=== PATIENT | female | born 1960 | race Caucasian/White ===

== ENCOUNTER 2018-01-28 14:17 | Inpatient (IN) | payer BC ==
[2018-01-28] MEDS ORDERED: MORPHINE SULFATE 10 MG/ML INJ IV ONE ×2 (14:57→16:54)
[2018-01-28] MEDS ORDERED: ONDANSETRON HCL INJ/PF 4 MG/2 ML SDV IV ONE (14:57)
--- NOTE | 2018-01-28 15:41 | ER Document Report ---
ED General - General Chief Complaint: Fall Injury Stated Complaint: FALL Time Seen by Provider: 01/28/18 14:55 Notes: Patient slipped getting out of the shower today and fell landing on her right hip which is extremely painful now. She cannot stand or bear weight on the hip. Having muscle spasms around the right hip. Denies head injury or neck injury. No loss of consciousness. No difficulty breathing or shortness of breath. No chest pains. - Related Data Allergies/Adverse Reactions: Iodinated Contrast- Oral and IV Dye Allergy (Verified 01/28/18 15:20) Past Medical History - Social History Smoking Status: Unknown if Ever Smoked Cigarette use (# per day): No Chew tobacco use (# tins/day): No Drug Abuse: None Family History: Reviewed & Not Pertinent Patient has suicidal ideation: No Patient has homicidal ideation: No - Past Medical History Cardiac Medical History: Reports: Hx Hypertension, Other - History of cardiomyopathy for 20 years Neurological Medical History: Reports: Hx Seizures - withdrawal induced Endocrine Medical History: Reports: Hx Diabetes Mellitus Type 2 Past Surgical History: Reports: Hx Appendectomy, Hx Section, Hx Cholecystectomy, Hx Kidney (Renal Surgery) - lithotripsy, Hx Orthopedic Surgery - elbow left Review of Systems - Review of Systems Notes: REVIEW OF SYSTEMS: CONSTITUTIONAL : Denies fever. EENT: Denies eye, ear, nose or mouth or throat pain or other symptoms. CARDIOVASCULAR: Denies chest pain. RESPIRATORY: Denies cough, chest congestion, or shortness of breath. GASTROINTESTINAL: Denies abdominal pain or nausea, vomiting, or diarrhea. GENITOURINARY: Denies difficulty or painful urinating, urinary frequency, blood in urine. MUSCULOSKELETAL: See HPI. Has chronic back pain. SKIN: Denies rash or skin lesions. NEUROLOGICAL: Denies LOC or altered mental status. Denies headache. Denies sensory loss or motor deficits. ALL OTHER SYSTEMS REVIEWED AND NEGATIVE. Physical Exam - Vital signs Interpretation: Normal Notes: PHYSICAL EXAMINATION: GENERAL: Well-appearing, in pain. Vital signs all normal. HEAD: Atraumatic, normocephalic. EYES: Pupils equal round and reactive to light, extraocular movements intact. ENT: oropharynx clear without exudates. Moist mucous membranes. NECK: Normal range of motion, supple. LUNGS: Breath sounds clear and equal bilaterally. HEART: Regular rate and rhythm without murmurs. ABDOMEN: Soft, nontender. No guarding or rebound. No masses. BACK: No tenderness throughout entire back. EXTREMITIES: Very tender right hip to touch or move. Right leg slightly shorter than the left. NEUROLOGICAL: Normal speech, normal gait. Normal sensory, motor, and reflex exams. Awake, alert, and oriented x3. Cranial nerves normal. PSYCH: Normal mood, normal affect. SKIN: Warm, dry, no rashes. Course - Re-evaluation Re-evalutation: 01/28/18 16:[address] Figueroa, orthopedist service operations manager, and he requested patient be admitted to the hospitalist service. Spoke with the hospitalist who will admit the patient to the surgical floor. - Diagnostic Test Radiology results interpreted by me: 01/28/18 16:17 X-rays show intertrochanteric fracture of the right hip - EKG Interpretation by [facility] EKG shows normal: Sinus rhythm Rate: Normal Renick/QRS: LBBB Discharge - Discharge Clinical Impression: Intertrochanteric fracture of right hip Condition: Stable Disposition: ADMITTED INPATIENT Admitting Provider: Hospitalist Unit Admitted: Surgical Floor
[2018-01-28 16:36] LABS: ABSOLUTE EOSINOPHILS # (AUTO) 0.7 10^3/uL (0.0-0.6); ABSOLUTE LYMPHOCYTES (AUTO) 1.9 10^3/uL (0.5-4.7); ABSOLUTE MONOCYTES (AUTO) 0.6 10^3/uL (0.1-1.4); ABSOLUTE NEUT (AUTO) 11.1 10^3/uL (1.7-8.2); BASOPHILS % (AUTO) 0.2 % (0-2); EOSINOPHILS % (AUTO) 4.8 % (0-6); HEMOGLOBIN 11.7 g/dL (12.0-15.5); LYMPHOCYTES % (AUTO) 13.3 % (13-45); MEAN CORPUSCULAR HEMOGLOBIN 31.1 pg (27.0-33.4); MEAN CORPUSCULAR HGB CONC 33.3 g/dL (32.0-36.0); MEAN CORPUSCULAR VOLUME 93 fl (80-97); MONOCYTES % (AUTO) 4.4 % (3-13); PLATELET COUNT 249 10^3/uL (150-450); RED BLOOD COUNT 3.75 10^6/uL (3.72-5.28); RED CELL DISTRIBUTION WIDTH 13.2 % (11.5-14.0); SEGMENTED NEUTROPHILS % (AUTO) 77.3 % (42-78); TOTAL CELLS COUNTED % (AUTO) 100 %; WHITE BLOOD COUNT 14.3 10^3/uL (4.0-10.5)
[2018-01-28 16:51] LABS: ALANINE AMINOTRANSFERASE 15 U/L (9-52); ALBUMIN 3.5 g/dL (3.5-5.0); ALKALINE PHOSPHATASE 119 U/L (38-126); ANION GAP 14 (5-19); ASPARTATE AMINO TRANSFERASE 20 U/L (14-36); BILIRUBIN,DIRECT 0.1 mg/dL (0.0-0.4); BILIRUBIN,TOTAL 0.3 mg/dL (0.2-1.3); BLOOD UREA NITROGEN 20 mg/dL (7-20); CALCIUM 8.8 mg/dL (8.4-10.2); CARBON DIOXIDE 22 mmol/L (22-30); CHLORIDE 102 mmol/L (98-107); GLUCOSE 123 mg/dL (75-110); POTASSIUM 5.8 mmol/L (3.6-5.0); SODIUM 138.4 mmol/L (137-145); TOTAL PROTEIN 6.1 g/dL (6.3-8.2)
[2018-01-28] MEDS ORDERED: PROMETHAZINE HCL 25 MG TABLET PO PRN (17:01)
[2018-01-28] MEDS ORDERED: ONDANSETRON HCL INJ/PF 4 MG/2 ML SDV IV PRN (17:01)
[2018-01-28] MEDS ORDERED: ONDANSETRON 4 MG TAB.RAPDIS PO PRN (17:01)
[2018-01-28] MEDS ORDERED: BISACODYL 5 MG TABEC PO PRN (17:21)
--- NOTE | 2018-01-28 17:30 | RADIOLOGY REPORT (SQ) ---
EXAM DESCRIPTION: HIP RIGHT AP/LATERAL COMPLETED DATE/TIME: 01/28/2018 3:19 pm REASON FOR STUDY: Room 9 SP-Fall/tenderness COMPARISON: None. NUMBER OF VIEWS: Two views. TECHNIQUE: AP pelvis and additional frog-leg view of the right hip. LIMITATIONS: None. FINDINGS: MINERALIZATION: Normal. RIGHT HIP: Intertrochanteric fracture. LEFT HIP: No fracture or dislocation. No worrisome bone lesions. PUBIS AND ISCHIUM: No fracture. PELVIS: No fracture. SACRUM: No fracture or dislocation. No worrisome bone lesions. LOWER LUMBAR SPINE: No fracture or dislocation. No worrisome bone lesions. No significant disc disea se. SOFT TISSUES: No findings. OTHER: No other significant finding. IMPRESSION: INTERTROCHANTERIC FRACTURE OF THE RIGHT HIP. TECHNICAL DOCUMENTATION: JOB ID: [id number] [employer]- All Rights Reserved Reading location - IP/workstation name: [email or web address]
--- NOTE | 2018-01-28 17:31 | RADIOLOGY REPORT (SQ) ---
EXAM DESCRIPTION: KNEE RIGHT 2 VIEWS COMPLETED DATE/TIME: 01/28/2018 3:23 pm REASON FOR STUDY: Room 9 SP-Fall/tenderness COMPARISON: None. NUMBER OF VIEWS: Two views. TECHNIQUE: AP and lateral radiographic images acquired of the right knee. LIMITATIONS: None. FINDINGS: MINERALIZATION: Normal. BONES: No acute fracture or dislocation. No worrisome bone lesions. JOINT: No effusion. SOFT TISSUES: No soft tissue swelling. No radio-opaque foreign body. OTHER: No other significant finding. IMPRESSION: NEGATIVE STUDY OF THE RIGHT KNEE. NO RADIOGRAPHIC EVIDENCE OF ACUTE INJURY. TECHNICAL DOCUMENTATION: JOB ID: [id number] [employer]- All Rights Reserved Reading location - IP/workstation name: [email or web address]
[2018-01-28] MEDS ORDERED: DEXTROSE 40% GEL 15 GM TUBE PO PRN ×2 (17:32)
[2018-01-28] MEDS ORDERED: DEXTROSE 50%-WATER 25 GM/50 ML DISP.SYRIN IV PRN ×2 (17:32)
[2018-01-28] MEDS ORDERED: GLUCAGON,HUMAN RECOMB 1 MG INJ IM PRN (17:32)
--- NOTE | 2018-01-28 17:53 | RADIOLOGY REPORT (SQ) ---
EXAM DESCRIPTION: CHEST SINGLE VIEW COMPLETED DATE/TIME: 01/28/2018 4:51 pm REASON FOR STUDY: Fracture hip, history cardiomyopathy COMPARISON: None. EXAM PARAMETERS: NUMBER OF VIEWS: One view. TECHNIQUE: Single frontal radiographic view of the chest acquired. RADIATION DOSE: NA LIMITATIONS: None. FINDINGS: LUNGS AND PLEURA: No opacities, masses or pneumothorax. No pleural effusion. MEDIASTINUM AND HILAR STRUCTURES: No masses. Contour normal. HEART AND VASCULAR STRUCTURES: Heart normal in size. Normal vasculature. BONES: No acute findings. HARDWARE: None in the chest. OTHER: No other significant finding. IMPRESSION: NO ACUTE RADIOGRAPHIC FINDING IN THE CHEST. TECHNICAL DOCUMENTATION: JOB ID: [id number] [place]-72 2010 [employer]- All Rights Reserved Reading location - IP/workstation name: [email or web address]
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
--- NOTE | 2018-01-28 18:55 | Progress Note ---
Provider Note Provider Note: Advance care planning note- The patient currently does not have any advanced planning such as healthcare proxy, living will or other documentation. Because she has certain requests such as not being on a ventilator for more than 7 days and thoughts about permanent placement in a fci, I strongly suggested that she create an advanced care planning document and this will specify the surrogate decision maker as well.
[2018-01-28 19:31] LABS: APPEARANCE,URINE CLEAR; BILIRUBIN,URINE NEGATIVE (NEGATIVE); COLOR,URINE YELLOW; GLUCOSE, URINE NEGATIVE (NEGATIVE); KETONES,URINE NEGATIVE (NEGATIVE); LEUKOCYTE ESTERASE,URINE NEGATIVE (NEGATIVE); NITRITE,URINE NEGATIVE (NEGATIVE); PROTEIN,URINE NEGATIVE (NEGATIVE); URINE SPECIFIC GRAVITY 1.014; UROBILINOGEN,URINE NEGATIVE mg/dL (<2.0)
[2018-01-28] MEDS: FLUOXETINE HCL 20 MG CAPSULE PO SCH (19:44)
[2018-01-28] MEDS: SODIUM POLYSTYRENE SULFONATE 15 GM/60 ML PO SCH ×2 (20:02→23:02)
[2018-01-28] MEDS: OXYCODONE HCL IR 5 MG TABLET PO PRN ×2 (20:10→23:56)
[2018-01-28] MEDS: CYCLOBENZAPRINE HCL 10 MG TABLET PO PRN (20:10)
[2018-01-28] MEDS: NORMAL SALINE 1000 ML 1,000 ML IV PRN (20:10)
[2018-01-28] MEDS: FAMOTIDINE 20 MG TABLET PO SCH (21:33)
[2018-01-28] MEDS: MORPHINE SULFATE 10 MG/ML INJ IV PRN (21:41)
[2018-01-28] MEDS: HEPARIN SOD (PORCINE) 5,000 UNIT/ML 1 ML SYRINGE SUBCUT SCH (21:46)
[2018-01-28] MEDS ORDERED: LISINOPRIL 10 MG TABLET PO SCH (22:00)
[2018-01-28] MEDS ORDERED: SODIUM POLYSTYRENE SULFONATE 15 GM/60 ML PO SCH (22:00)
--- NOTE | 2018-01-28 22:19 | EKG REPORT ---
SEVERITY:- ABNORMAL ECG - SINUS RHYTHM PROBABLE LEFT ATRIAL ABNORMALITY LEFT BUNDLE BRANCH BLOCK : Confirmed by: Chantale Maxwell MD 28-Jan-2018 22:18:10
[2018-01-29] MEDS: MORPHINE SULFATE 10 MG/ML INJ IV PRN ×5 (02:33→22:36)
[2018-01-29] MEDS: CYCLOBENZAPRINE HCL 10 MG TABLET PO PRN ×3 (03:35→19:58)
[2018-01-29] MEDS: OXYCODONE HCL IR 5 MG TABLET PO PRN ×3 (03:35→19:57)
[2018-01-29] MEDS: HEPARIN SOD (PORCINE) 5,000 UNIT/ML 1 ML SYRINGE SUBCUT SCH ×2 (05:22→17:57)
[2018-01-29] MEDS: SODIUM POLYSTYRENE SULFONATE 15 GM/60 ML PO SCH (05:59)
[2018-01-29 06:31] LABS: ABSOLUTE EOSINOPHILS # (AUTO) 0.5 10^3/uL (0.0-0.6); ABSOLUTE LYMPHOCYTES (AUTO) 2.2 10^3/uL (0.5-4.7); ABSOLUTE MONOCYTES (AUTO) 0.6 10^3/uL (0.1-1.4); ABSOLUTE NEUT (AUTO) 5.9 10^3/uL (1.7-8.2); BASOPHILS % (AUTO) 0.3 % (0-2); EOSINOPHILS % (AUTO) 5.3 % (0-6); HEMOGLOBIN 10.4 g/dL (12.0-15.5); LYMPHOCYTES % (AUTO) 23.6 % (13-45); MEAN CORPUSCULAR HGB CONC 34.6 g/dL (32.0-36.0); MEAN CORPUSCULAR VOLUME 93 fl (80-97); MONOCYTES % (AUTO) 6.9 % (3-13); PLATELET COUNT 224 10^3/uL (150-450); RED BLOOD COUNT 3.24 10^6/uL (3.72-5.28); RED CELL DISTRIBUTION WIDTH 13.4 % (11.5-14.0); SEGMENTED NEUTROPHILS % (AUTO) 63.9 % (42-78); TOTAL CELLS COUNTED % (AUTO) 100 %; WHITE BLOOD COUNT 9.2 10^3/uL (4.0-10.5)
[2018-01-29 06:44] LABS: INTERNATIONAL RATION (INR) 0.97; PARTIAL THROMBOPLASTIN TIME 28.3 SEC (23.5-35.8); PROTHROMBIN TIME 13.3 SEC (11.4-15.4)
[2018-01-29 06:49] LABS: ANION GAP 10 (5-19); BLOOD UREA NITROGEN 18 mg/dL (7-20); CALCIUM 8.2 mg/dL (8.4-10.2); CARBON DIOXIDE 25 mmol/L (22-30); CHLORIDE 103 mmol/L (98-107); GLUCOSE 131 mg/dL (75-110)
[2018-01-29] MEDS ORDERED: HYDROMORPHONE HCL INJ/PF 2 MG/ML AMPULE IV ONE (07:30)
[2018-01-29] MEDS: MAGNESIUM SULFATE/D5W 1 GM/100 ML RTUPB IV SCH ×2 (08:38→10:10)
[2018-01-29] MEDS: NORMAL SALINE 1000 ML 1,000 ML IV PRN (08:41)
[2018-01-29] MEDS: FLUOXETINE HCL 20 MG CAPSULE PO SCH ×2 (09:55→17:42)
[2018-01-29] MEDS: METOPROLOL SUCCINATE 25 MG TAB.SR.24H PO SCH (09:55)
[2018-01-29] MEDS: LISINOPRIL 10 MG TABLET PO SCH ×2 (09:57→22:13)
[2018-01-29] MEDS: POLYETHYLENE GLYCOL 3350 POWDER 17 GM/1 PACKET PO SCH (09:57)
[2018-01-29] MEDS: FAMOTIDINE 20 MG TABLET PO SCH ×2 (09:57→22:13)
[2018-01-29] MEDS: PHENYTOIN SODIUM EXTENDED 100 MG CAPSULE PO SCH (09:58)
[2018-01-29] MEDS ORDERED: BUTRANS TD SCH ×2 (12:00→12:30)
[2018-01-29] MEDS ORDERED: FENTANYL CITRATE INJ/PF 100 MCG/2 ML AMPUL ONE (12:18)
[2018-01-29] MEDS ORDERED: PROPOFOL INJ 200 MG/20 ML VIAL IV ONE (12:19)
[2018-01-29] MEDS ORDERED: MIDAZOLAM 2 MG/2 ML INJ ONE (12:19)
[2018-01-29] MEDS ORDERED: ONDANSETRON HCL INJ/PF 4 MG/2 ML SDV ONE (12:19)
[2018-01-29] MEDS ORDERED: TRANEXAMIC ACID INJ/PF 1,000 MG/10 ML SDV IV ONE ×2 (12:19→17:00)
[2018-01-29] MEDS ORDERED: DEXAMETHASONE SOD PHOSPHATE INJ 4 MG/1 ML VIAL ONE (12:19)
[2018-01-29] MEDS ORDERED: ACETAMINOPHEN 1,000 MG/100 ML RTUPB IV ONE (12:20)
--- NOTE | 2018-01-29 12:29 | XCELERA REPORT ---
[address] [address] Transthoracic Echocardiogram Report Name: WANDA BYERS Age: 57 yrs Gender: Female : 1960 Patient Status: Inpatient Patient Location: [address] [place], [place] [address] Study Date: 01/29/2018 09:23 AM Height: 63 in Weight: 159 lb BSA: 1.8 m2 Procedure: A complete two-dimensional transthoracic echocardiogram was performed (2D, M-mode, spectral and color flow Doppler). The study was technically difficult with many images being suboptimal in quality. Reason For Study: cardiomyopathy, pre-op eval Ordering Physician: MIKAELA MATTSON Performed By: Juanita Orozco Interpretation Summary The left ventricular ejection fraction is normal. There is mild concentric left ventricular hypertrophy. The left ventricle is grossly normal size. Doppler measurements suggest pseudonormalized left ventricular relaxation, which is associated with grade II/IV or mild to moderate diastolic dysfunction Wall motion cannot be accurately commented on, but no definite regional wall motion abnormalities noted. The right ventricular systolic function is normal. Borderline right ventricular enlargement. Borderline left atrial enlargement. The right atrium is normal in size There is a trace amount of mitral regurgitation There is no mitral valve stenosis. No aortic regurgitation is present. There is no aortic valve stenosis There is a trace or physiologic amount of tricuspid regurgitation Tricuspid regurgitation jet envelope not well defined to measure RV systolic pressure accurately. The aortic root is not well visualized but is probably normal size. The inferior vena cava appeared normal and decreased > 50% with respiration (RAP 5-10 mmHg) There is no pericardial effusion. MMode/2D Measurements & Calculations RVDd: 3.0 cm LVIDd: 4.2 cm FS: 31.3 % Ao root diam: 2.5 cm IVSd: 1.0 cm LVIDs: 2.9 cm EDV(Teich): 77.0 ml Ao root area: 4.9 cm2 LVPWd: 0.98 cm ESV(Teich): 31.1 ml LA dimension: 3.3 cm EF(Teich): 59.6 % Doppler Measurements & Calculations MV E max ally: MV P1/2t max ally: Ao V2 max: LV V1 max P.2 cm/sec 104.2 cm/sec 147.8 cm/sec 2.6 mmHg MV A max ally: MV P1/2t: 54.2 msec Ao max P.7 mmHgLV V1 max: 145.3 cm/sec MVA(P1/2t): 4.1 cm2 81.2 cm/sec MV E/A: 0.72 MV dec slope: 562.8 cm/sec2 MV dec time: 0.18 sec PA V2 max: TR max ally: MV P1/2t-pr_phl: 86.9 cm/sec 236.2 cm/sec 54.2 msec PA max P.0 mmHg TR max P.3 mmHg Left Ventricle The left ventricle is grossly normal size. There is mild concentric left ventricular hypertrophy. The left ventricular ejection fraction is normal. Doppler measurements suggest pseudonormalized left ventricular relaxation, which is associated with grade II/IV or mild to moderate diastolic dysfunction. Wall motion cannot be accurately commented on, but no definite regional wall motion abnormalities noted. Right Ventricle Borderline right ventricular enlargement. There is normal right ventricular wall thickness. The right ventricular systolic function is normal. Atria The right atrium is normal in size. Borderline left atrial enlargement. Interarterial septum not well visualized and not well dopplered. Cannot comment on ASD/PFO presence. Mitral Valve There is mild mitral annular calcification. There is no mitral valve stenosis. There is a trace amount of mitral regurgitation. Aortic Valve The aortic valve is not well visualized secondary to technical limitations. There is no aortic valve stenosis. No aortic regurgitation is present. Tricuspid Valve The tricuspid valve is not well visualized secondary to technical limitations. There is no tricuspid stenosis. There is a trace or physiologic amount of tricuspid regurgitation. Tricuspid regurgitation jet envelope not well defined to measure RV systolic pressure accurately. Pulmonic Valve The pulmonic valve is not well visualized. Great Vessels The aortic root is not well visualized but is probably normal size. The inferior vena cava appeared normal and decreased > 50% with respiration (RAP 5-10 mmHg). Effusions There is no pericardial effusion. : MIKAELA MATTSON > Harrison Young
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
[2018-01-29] MEDS ORDERED: KETAMINE HCL INJ 500 MG/10 ML VIAL ONE (12:35)
[2018-01-29] MEDS ORDERED: MORPHINE SULFATE 10 MG/ML INJ IV PRN ×2 (12:36→13:59)
[2018-01-29] MEDS ORDERED: BUPIVACAINE HCL/DEX-WATER/PF 15 MG/2 ML AMPULE ONE (12:38)
[2018-01-29] MEDS ORDERED: ONDANSETRON HCL INJ/PF 4 MG/2 ML SDV IV PRN ×2 (13:00→13:59)
[2018-01-29] MEDS ORDERED: ONDANSETRON 4 MG TAB.RAPDIS PO PRN (13:00)
[2018-01-29] MEDS ORDERED: CEFAZOLIN INJ 1 GM VIAL ONE (13:12)
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
[2018-01-29] MEDS ORDERED: PROMETHAZINE HCL INJ 25 MG/1 ML VIAL IV PRN ×2 (13:59)
[2018-01-29] MEDS ORDERED: FENTANYL CITRATE INJ/PF 100 MCG/2 ML AMPUL IV PRN ×3 (13:59)
[2018-01-29] MEDS ORDERED: DIPHENHYDRAMINE HCL 50 MG/ML VIAL IV PRN (13:59)
[2018-01-29] MEDS ORDERED: MEPERIDINE HCL/PF INJ 25 MG/1 ML DISP.SYRIN IV PRN (13:59)
[2018-01-29] MEDS ORDERED: CEFAZOLIN 2 GM/D5W RTU 2 GM/50 ML RTUPB IV ONE (14:00)
[2018-01-29] MEDS ORDERED: SUCCINYLCHOLINE CHLORIDE INJ 200 MG/10 ML VIAL ONE (14:23)
--- NOTE | 2018-01-29 14:29 | Operative Report ---
Operative Report DATE OF SURGERY: 01/29/18 PREOPERATIVE DIAGNOSIS: Right intertrochanteric femur fracture OPERATION: Open reduction internal fixation right intertrochanteric femur fracture SURGEON: ALEXIS SANTANA ANESTHESIA: GA ESTIMATED BLOOD LOSS: 100 PROCEDURE: With the patient supine on the fracture table the right lower extremities prepped and draped in sterile fashion. The limb is 6 manipulated under fluoroscopic guidance to affect a near anatomic reduction. Subsequently a pin is placed percutaneously through the greater trochanter down into the proximal femoral metadiaphysis. A combined reamer was used to fashion a cortical opening. A ball-tipped guide rods placed down the femur and measured the femoral length to be 340 mm. Subsequently the femoral canal is reamed using flexible reamers until 12.5 reamer is passed. Next a [employer] gamma 311 mm x 125 degrees x 140 mm was placed over the ball-tipped guide fidelina for an appropriate depth to allow the proximal interlock. The proximal proximal interlock is placed, 90 mm without event. A distal interlock is placed using fluoroscopic guidance uneventfully. The wounds are irrigated with bulb lavage. The closure is interrupted Vicryl followed by yesi. A sterile compressive dressing was applied and the patient 's return to PACU in satisfactory condition.
[2018-01-29] MEDS: FENTANYL CITRATE INJ/PF 100 MCG/2 ML AMPUL ONE ×2 (14:45→14:50)
[2018-01-29] MEDS ORDERED: ONDANSETRON 4 MG TAB.RAPDIS SL PRN (15:00)
[2018-01-29] MEDS: MORPHINE SULFATE 10 MG/ML INJ ONE ×2 (15:04→15:09)
[2018-01-29] MEDS ORDERED: DIAZEPAM INJ 10 MG/2 ML DISP.SYRIN ONE (15:43)
[2018-01-29] MEDS ORDERED: DIAZEPAM INJ 10 MG/2 ML DISP.SYRIN IV ONE (15:45)
--- NOTE | 2018-01-29 16:04 | RADIOLOGY REPORT (SQ) ---
EXAM DESCRIPTION: NO CHG FLUORO; HIP IN OPERATING RM COMPLETED DATE/TIME: 01/29/2018 2:49 pm; 01/29/2018 2:50 pm REASON FOR STUDY: ORIF RIGHT HIP ASST WITH FLUORO IN OR COMPARISON: None. FLUOROSCOPY TIME: 1 minutes 5 Images saved to PACS LIMITATIONS: None. PROCEDURE: ORIF right hip fracture. FINDINGS: Images obtained from fluoro document placement of a long medullary fidelina in the femur and a long cannulated screw through the femoral neck into the femoral head. IMPRESSION: ORIF right hip fracture. Refer to operative note for further information. COMMENT: PQRS 6045F: Fluoroscopy time of the procedure is documented in the report. TECHNICAL DOCUMENTATION: JOB ID: [id number] [employer]- All Rights Reserved Reading location - IP/workstation name: [email or web address]
--- NOTE | 2018-01-29 16:04 | RADIOLOGY REPORT (SQ) ---
EXAM DESCRIPTION: NO CHG FLUORO; HIP IN OPERATING RM COMPLETED DATE/TIME: 01/29/2018 2:49 pm; 01/29/2018 2:50 pm REASON FOR STUDY: ORIF RIGHT HIP ASST WITH FLUORO IN OR COMPARISON: None. FLUOROSCOPY TIME: 1 minutes 5 Images saved to PACS LIMITATIONS: None. PROCEDURE: ORIF right hip fracture. FINDINGS: Images obtained from fluoro document placement of a long medullary fidelina in the femur and a long cannulated screw through the femoral neck into the femoral head. IMPRESSION: ORIF right hip fracture. Refer to operative note for further information. COMMENT: PQRS 6045F: Fluoroscopy time of the procedure is documented in the report. TECHNICAL DOCUMENTATION: JOB ID: [id number] [employer]- All Rights Reserved Reading location - IP/workstation name: [email or web address]
[2018-01-29] MEDS: RINGERS SOLUTION,LACTATED 1,000 ML IV PRN (20:12)
[2018-01-29] MEDS: INSULIN LISPRO 100 UNIT/ML 3 ML VIAL SUBCUT PRN (22:11)
[2018-01-29] MEDS: CEFAZOLIN 2 GM/D5W RTU 2 GM/50 ML RTUPB IV SCH (22:15)
[2018-01-30] MEDS: OXYCODONE HCL IR 5 MG TABLET PO PRN ×3 (02:00→17:03)
[2018-01-30] MEDS: RINGERS SOLUTION,LACTATED 1,000 ML IV PRN (04:18)
[2018-01-30 05:45] LABS: HEMATOCRIT 25.4 % (36.0-47.0); HEMOGLOBIN 8.8 g/dL (12.0-15.5); MEAN CORPUSCULAR HEMOGLOBIN 32.2 pg (27.0-33.4); MEAN CORPUSCULAR HGB CONC 34.8 g/dL (32.0-36.0); MEAN CORPUSCULAR VOLUME 93 fl (80-97); PLATELET COUNT 178 10^3/uL (150-450); RED BLOOD COUNT 2.74 10^6/uL (3.72-5.28); RED CELL DISTRIBUTION WIDTH 13.1 % (11.5-14.0); WHITE BLOOD COUNT 9.7 10^3/uL (4.0-10.5)
[2018-01-30 06:07] LABS: ANION GAP 9 (5-19); BLOOD UREA NITROGEN 11 mg/dL (7-20); CARBON DIOXIDE 26 mmol/L (22-30); CHLORIDE 102 mmol/L (98-107); GLUCOSE 175 mg/dL (75-110); POTASSIUM 4.4 mmol/L (3.6-5.0); SODIUM 136.9 mmol/L (137-145)
[2018-01-30] MEDS: CEFAZOLIN 2 GM/D5W RTU 2 GM/50 ML RTUPB IV SCH (06:25)
--- NOTE | 2018-01-30 06:50 | PDOC PROGRESS REPORT ---
Subjective Progress Note for:: 01/30/18 Reason For Visit: RIGHT INTERTROCHANTERIC HIP FRACTURE,DM2,SEIZURE 57-year-old white female now postop day 1 status post open reduction internal fixation of her right intertrochanteric femur fracture. Patient with complaints of pain this morning. Was not seen by physical therapy yesterday because the case was done late in the day. Physical Exam Vital Signs: Temp Pulse Resp BP Pulse Ox 37.4 C 113 H 16 125/62 96 01/30/18 03:28 01/30/18 03:28 01/30/18 03:28 01/30/18 03:28 01/30/18 03:28 Intake & Output 01/28/18 01/29/18 01/30/18 06:59 06:59 06:59 Intake Total 4089 Output Total 800 2024 Balance -800 2063 Weight 72.3 kg 73.2 kg General appearance: PRESENT: mild distress, well-nourished Head exam: PRESENT: normocephalic Respiratory exam: PRESENT: unlabored Cardiovascular exam: PRESENT: RRR Pulses: PRESENT: +1 pedal pulses bilateral Vascular exam: PRESENT: normal capillary refill GI/Abdominal exam: PRESENT: soft Rectal exam: PRESENT: deferred Extremities exam: PRESENT: other - Right lower extremity dressings are clean dry and intact. Leg lengths are equal. Distal neurovascular examination is intact. Neurological exam: PRESENT: alert, awake, oriented to person, oriented to place , oriented to time, oriented to situation. ABSENT: motor sensory deficit Psychiatric exam: PRESENT: appropriate affect, normal mood. ABSENT: homicidal ideation, suicidal ideation Skin exam: PRESENT: dry, intact, warm. ABSENT: cyanosis, rash Results Laboratory Results: 01/30/18 04:42 01/30/18 04:42 01/29/18 01/30/18 01/30/18 05:25 04:42 04:42 WBC 9.7 RBC 2.74 L Hgb 8.8 L Hct 25.4 L MCV 93 MCH 32.2 MCHC 34.8 RDW 13.1 Plt Count 178 Sodium 138.0 136.9 L Potassium 5.0 4.4 Chloride 103 102 Carbon Dioxide 25 26 Anion Gap 10 9 BUN 18 11 Creatinine 0.64 0.58 Est GFR ( Amer) > 60 > 60 Est GFR (Non-Af Amer) > 60 > 60 Glucose 131 H 175 H Calcium 8.2 L 8.0 L Magnesium 1.5 L 1.8 Impressions: Hip/Pelvis X-Ray 01/28/18 00:00 IMPRESSION: INTERTROCHANTERIC FRACTURE OF THE RIGHT HIP. Knee X-Ray 01/28/18 00:00 IMPRESSION: NEGATIVE STUDY OF THE RIGHT KNEE. NO RADIOGRAPHIC EVIDENCE OF ACUTE INJURY. Chest X-Ray 01/28/18 15:33 IMPRESSION: NO ACUTE RADIOGRAPHIC FINDING IN THE CHEST. Fluoroscopy 01/29/18 00:00 IMPRESSION: ORIF right hip fracture. Refer to operative note for further information. Hip X-Ray 01/29/18 00:00 IMPRESSION: ORIF right hip fracture. Refer to operative note for further information. Status: Imported from PACS Assessment & Plan - Diagnosis (1) Intertrochanteric fracture of right hip Qualifiers: Encounter type: initial encounter Fracture type: closed Fracture alignment: displaced Qualified Code(s): S72.141A - Displaced intertrochanteric fracture of right femur, initial encounter for closed fracture Is this a current diagnosis for this admission?: Yes Plan: Postop day 1 status post ORIF of right intertrochanteric femur fracture. Plan will be mobilization with physical therapy and weightbearing as tolerated basis. Discharge planning will depend on the patient's functional capacity. - Time Time Spent with patient: 15-24 minutes Anticipated discharge: Other Within: Other
[2018-01-30] MEDS: CYCLOBENZAPRINE HCL 10 MG TABLET PO PRN ×2 (08:12→17:03)
[2018-01-30] MEDS: INSULIN LISPRO 100 UNIT/ML 3 ML VIAL SUBCUT PRN ×3 (08:16→17:05)
[2018-01-30] MEDS: POLYETHYLENE GLYCOL 3350 POWDER 17 GM/1 PACKET PO SCH (09:55)
[2018-01-30] MEDS: MORPHINE SULFATE 10 MG/ML INJ IV PRN ×2 (09:55→13:25)
[2018-01-30] MEDS: METOPROLOL SUCCINATE 25 MG TAB.SR.24H PO SCH (09:56)
[2018-01-30] MEDS: LISINOPRIL 10 MG TABLET PO SCH ×2 (09:56→22:43)
[2018-01-30] MEDS: ASPIRIN 81 MG TABLET, ENT COATED PO SCH (09:56)
[2018-01-30] MEDS: METFORMIN HCL 500 MG TABLET PO SCH (09:56)
[2018-01-30] MEDS: FLUOXETINE HCL 20 MG CAPSULE PO SCH ×2 (09:56→17:27)
[2018-01-30] MEDS: FAMOTIDINE 20 MG TABLET PO SCH ×2 (09:56→22:44)
[2018-01-30] MEDS: PHENYTOIN SODIUM EXTENDED 100 MG CAPSULE PO SCH (09:56)
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
--- NOTE | 2018-01-30 12:05 | PDOC PROGRESS REPORT ---
Subjective Progress Note for:: 01/30/18 Subjective:: This is 57 years old female patient who involved in mechanical fall and sustained right intertrochanteric hip fracture. Today's her postop and she is status post ORIF. Dr. Salinas consulted for possible short-term acute rehab placement. Occupational and physical therapist about to evaluate this patient. And I will follow the recommendation. Reason For Visit: RIGHT INTERTROCHANTERIC HIP FRACTURE,DM2,SEIZURE Physical Exam Vital Signs: Temp Pulse Resp BP Pulse Ox 100.3 F 122 H 16 131/63 H 98 01/30/18 07:55 01/30/18 07:55 01/30/18 07:55 01/30/18 07:55 01/30/18 07:55 Intake & Output 01/29/18 01/30/18 01/31/18 06:59 06:59 06:59 Intake Total 4089 Output Total 800 2024 Balance -800 2063 Weight 72.3 kg 73.2 kg General appearance: PRESENT: no acute distress Head exam: PRESENT: atraumatic Neck exam: ABSENT: carotid bruit, JVD, lymphadenopathy, thyromegaly Respiratory exam: PRESENT: clear to auscultation genaro. ABSENT: rales, rhonchi, wheezes Cardiovascular exam: PRESENT: RRR. ABSENT: diastolic murmur, rubs, systolic murmur GI/Abdominal exam: PRESENT: normal bowel sounds, soft. ABSENT: distended, guarding, mass, organolmegaly, rebound, tenderness Neurological exam: PRESENT: alert, awake, oriented to time, oriented to situation Results Laboratory Results: 01/30/18 04:42 01/30/18 04:42 01/30/18 01/30/18 04:42 04:42 WBC 9.7 RBC 2.74 L Hgb 8.8 L Hct 25.4 L MCV 93 MCH 32.2 MCHC 34.8 RDW 13.1 Plt Count 178 Sodium 136.9 L Potassium 4.4 Chloride 102 Carbon Dioxide 26 Anion Gap 9 BUN 11 Creatinine 0.58 Est GFR ( Amer) > 60 Est GFR (Non-Af Amer) > 60 Glucose 175 H Calcium 8.0 L Magnesium 1.8 Impressions: Hip/Pelvis X-Ray 01/28/18 00:00 IMPRESSION: INTERTROCHANTERIC FRACTURE OF THE RIGHT HIP. Knee X-Ray 01/28/18 00:00 IMPRESSION: NEGATIVE STUDY OF THE RIGHT KNEE. NO RADIOGRAPHIC EVIDENCE OF ACUTE INJURY. Chest X-Ray 01/28/18 15:33 IMPRESSION: NO ACUTE RADIOGRAPHIC FINDING IN THE CHEST. Fluoroscopy 01/29/18 00:00 IMPRESSION: ORIF right hip fracture. Refer to operative note for further information. Hip X-Ray 01/29/18 00:00 IMPRESSION: ORIF right hip fracture. Refer to operative note for further information. Assessment & Plan - Diagnosis (1) Intertrochanteric fracture of right hip Qualifiers: Encounter type: initial encounter Fracture type: closed Fracture alignment: displaced Qualified Code(s): S72.141A - Displaced intertrochanteric fracture of right femur, initial encounter for closed fracture Is this a current diagnosis for this admission?: Yes Plan: Postop #1. Status post ORIF. Patient may need short-term acute rehab placement. (2) DM2 (diabetes mellitus, type 2) Qualifiers: Diabetes mellitus terminal make up operator insulin use: without terminal make up operator use Diabetes mellitus complication status: without complication Qualified Code(s): E11.9 - Type 2 diabetes mellitus without complications Is this a current diagnosis for this admission?: Yes Plan: Continue current regimen. 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 (7) Seizure disorder Is this a current diagnosis for this admission?: Yes Plan: In remission (8) Depression Qualifiers: Depression Type: unspecified Qualified Code(s): F32.9 - Major depressive disorder, single episode, unspecified Is this a current diagnosis for this admission?: Yes Plan: Continue home medication.
[2018-01-31] MEDS: OXYCODONE HCL IR 5 MG TABLET PO PRN ×3 (03:13→15:29)
[2018-01-31 06:14] LABS: ANION GAP 14 (5-19); BLOOD UREA NITROGEN 12 mg/dL (7-20); CALCIUM 8.4 mg/dL (8.4-10.2); CARBON DIOXIDE 28 mmol/L (22-30); CHLORIDE 100 mmol/L (98-107); CREATINE KINASE 212 U/L (30-135); GLUCOSE 175 mg/dL (75-110); POTASSIUM 3.8 mmol/L (3.6-5.0); SODIUM 141.6 mmol/L (137-145)
[2018-01-31 06:22] LABS: CREATINE KINASE MB 1.08 ng/mL (<4.55)
[2018-01-31 06:23] LABS: TROPONIN I < 0.012 ng/mL
--- NOTE | 2018-01-31 07:16 | PDOC PROGRESS REPORT ---
Subjective Progress Note for:: 01/31/18 Reason For Visit: RIGHT INTERTROCHANTERIC HIP FRACTURE,DM2,SEIZURE 57-year-old white female postop day 1 status post ORIF of a right intratrochanteric femur fracture. Patient with evidence of cardiac arrhythmia overnight. Physical Exam Vital Signs: Temp Pulse Resp BP Pulse Ox 37.6 C 131 H 16 145/72 H 95 01/31/18 03:32 01/31/18 05:26 01/31/18 03:32 01/31/18 03:32 01/31/18 03:32 Intake & Output 01/30/18 01/31/18 02/01/18 06:59 06:59 06:59 Intake Total 4089 1115 Output Total 2024 2800 Balance 2063 -1684 Weight 73.2 kg 74.2 kg General appearance: PRESENT: no acute distress Head exam: PRESENT: normocephalic Results Laboratory Results: 01/30/18 04:42 01/31/18 05:26 01/31/18 05:26 Sodium 141.6 Potassium 3.8 Chloride 100 Carbon Dioxide 28 Anion Gap 14 BUN 12 Creatinine 0.49 L Est GFR ( Amer) > 60 Est GFR (Non-Af Amer) > 60 Glucose 175 H Calcium 8.4 Magnesium 1.8 01/31/18 01/31/18 05:26 05:26 Creatine Kinase 212 H CK-MB (CK-2) 1.08 Troponin I < 0.012 Impressions: Hip/Pelvis X-Ray 01/28/18 00:00 IMPRESSION: INTERTROCHANTERIC FRACTURE OF THE RIGHT HIP. Knee X-Ray 01/28/18 00:00 IMPRESSION: NEGATIVE STUDY OF THE RIGHT KNEE. NO RADIOGRAPHIC EVIDENCE OF ACUTE INJURY. Chest X-Ray 01/28/18 15:33 IMPRESSION: NO ACUTE RADIOGRAPHIC FINDING IN THE CHEST. Fluoroscopy 01/29/18 00:00 IMPRESSION: ORIF right hip fracture. Refer to operative note for further information. Hip X-Ray 01/29/18 00:00 IMPRESSION: ORIF right hip fracture. Refer to operative note for further information. Status: Imported from PACS Assessment & Plan - Diagnosis (1) Intertrochanteric fracture of right hip Qualifiers: Encounter type: initial encounter Fracture type: closed Fracture alignment: displaced Qualified Code(s): S72.141A - Displaced intertrochanteric fracture of right femur, initial encounter for closed fracture Is this a current diagnosis for this admission?: Yes Plan: Patient to be mobilized with physical therapy as medical condition permits
[2018-01-31] MEDS: LISINOPRIL 10 MG TABLET PO SCH ×2 (09:27→22:37)
[2018-01-31] MEDS: INSULIN LISPRO 100 UNIT/ML 3 ML VIAL SUBCUT PRN ×3 (09:27→22:36)
[2018-01-31] MEDS: CYCLOBENZAPRINE HCL 10 MG TABLET PO PRN ×2 (09:27→22:38)
[2018-01-31] MEDS: METOPROLOL SUCCINATE 25 MG TAB.SR.24H PO SCH (09:29)
[2018-01-31] MEDS: ASPIRIN 81 MG TABLET, ENT COATED PO SCH (09:30)
[2018-01-31] MEDS: POLYETHYLENE GLYCOL 3350 POWDER 17 GM/1 PACKET PO SCH (09:30)
[2018-01-31] MEDS: FAMOTIDINE 20 MG TABLET PO SCH ×2 (09:30→22:38)
[2018-01-31] MEDS: PHENYTOIN SODIUM EXTENDED 100 MG CAPSULE PO SCH (09:30)
[2018-01-31] MEDS: METFORMIN HCL 500 MG TABLET PO SCH (09:30)
[2018-01-31] MEDS: FLUOXETINE HCL 20 MG CAPSULE PO SCH ×2 (09:30→17:05)
[2018-01-31 09:39] LABS: CREATINE KINASE MB 1.1 ng/mL (<4.55); TROPONIN I 0.013 ng/mL
--- NOTE | 2018-01-31 13:42 | PDOC PROGRESS REPORT ---
Subjective Progress Note for:: 01/31/18 Subjective:: I have seen patient resting in bed. She is awake alert and oriented she is not in pain or distress. Reportedly patient had an episode of nonsustained V. tach for which is the on-call physician was consulted he ordered magnesium and troponin both after negative. Patient later reverted to sinus rhythm. Patient has been evaluated by Dr. Salinas and he recommended short-term acute rehab. Reason For Visit: RIGHT INTERTROCHANTERIC HIP FRACTURE,DM2,SEIZURE Physical Exam Vital Signs: Temp Pulse Resp BP Pulse Ox 99.4 F 101 H 14 116/53 L 97 01/31/18 12:38 01/31/18 12:38 01/31/18 12:38 01/31/18 12:38 01/31/18 12:38 Intake & Output 01/30/18 01/31/18 02/01/18 06:59 06:59 06:59 Intake Total 4089 1115 Output Total 2025 2800 Balance 2063 -1684 Weight 73.2 kg 74.2 kg General appearance: PRESENT: no acute distress, well-developed, well-nourished Head exam: PRESENT: atraumatic, normocephalic Eye exam: PRESENT: conjunctiva pink, EOMI, PERRLA. ABSENT: scleral icterus Ear exam: PRESENT: normal external ear exam Mouth exam: PRESENT: moist, tongue midline Neck exam: ABSENT: carotid bruit, JVD, lymphadenopathy, thyromegaly Respiratory exam: PRESENT: clear to auscultation genaro. ABSENT: rales, rhonchi, wheezes Cardiovascular exam: PRESENT: RRR. ABSENT: diastolic murmur, rubs, systolic murmur Pulses: PRESENT: normal dorsalis pedis pul Vascular exam: PRESENT: normal capillary refill GI/Abdominal exam: PRESENT: normal bowel sounds, soft. ABSENT: distended, guarding, mass, organolmegaly, rebound, tenderness Rectal exam: PRESENT: deferred Extremities exam: PRESENT: full ROM. ABSENT: calf tenderness, clubbing, pedal edema Neurological exam: PRESENT: alert, awake, oriented to person, oriented to place , oriented to time, oriented to situation, CN II-XII grossly intact. ABSENT: motor sensory deficit Psychiatric exam: PRESENT: appropriate affect, normal mood. ABSENT: homicidal ideation, suicidal ideation Skin exam: PRESENT: dry, intact, warm. ABSENT: cyanosis, rash Results Laboratory Results: 01/30/18 04:42 01/31/18 05:26 01/31/18 05:26 Sodium 141.6 Potassium 3.8 Chloride 100 Carbon Dioxide 28 Anion Gap 14 BUN 12 Creatinine 0.49 L Est GFR ( Amer) > 60 Est GFR (Non-Af Amer) > 60 Glucose 175 H Calcium 8.4 Magnesium 1.8 01/31/18 01/31/18 01/31/18 05:26 05:26 08:49 Creatine Kinase 212 H 202 H CK-MB (CK-2) 1.08 Troponin I < 0.012 01/31/18 08:49 Creatine Kinase CK-MB (CK-2) 1.10 Troponin I 0.013 Impressions: Hip/Pelvis X-Ray 01/28/18 00:00 IMPRESSION: INTERTROCHANTERIC FRACTURE OF THE RIGHT HIP. Knee X-Ray 01/28/18 00:00 IMPRESSION: NEGATIVE STUDY OF THE RIGHT KNEE. NO RADIOGRAPHIC EVIDENCE OF ACUTE INJURY. Chest X-Ray 01/28/18 15:33 IMPRESSION: NO ACUTE RADIOGRAPHIC FINDING IN THE CHEST. Fluoroscopy 01/29/18 00:00 IMPRESSION: ORIF right hip fracture. Refer to operative note for further information. Hip X-Ray 01/29/18 00:00 IMPRESSION: ORIF right hip fracture. Refer to operative note for further information. Assessment & Plan - Diagnosis (1) Intertrochanteric fracture of right hip Qualifiers: Encounter type: initial encounter Fracture type: closed Fracture alignment: displaced Qualified Code(s): S72.141A - Displaced intertrochanteric fracture of right femur, initial encounter for closed fracture Is this a current diagnosis for this admission?: Yes Plan: Postop #1. Status post ORIF. Patient may need short-term acute rehab placement. (2) DM2 (diabetes mellitus, type 2) Qualifiers: Diabetes mellitus detention insulin use: without detention use Diabetes mellitus complication status: without complication Qualified Code(s): E11.9 - Type 2 diabetes mellitus without complications Is this a current diagnosis for this admission?: Yes Plan: Continue current regimen. 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 (7) Seizure disorder Is this a current diagnosis for this admission?: Yes Plan: In remission (8) Depression Qualifiers: Depression Type: unspecified Qualified Code(s): F32.9 - Major depressive disorder, single episode, unspecified Is this a current diagnosis for this admission?: Yes
[2018-01-31 14:50] LABS: CREATINE KINASE MB 1.37 ng/mL (<4.55)
[2018-01-31 14:54] LABS: TROPONIN I < 0.012 ng/mL
[2018-01-31 20:32] LABS: CREATINE KINASE MB 1.56 ng/mL (<4.55)
[2018-01-31 20:33] LABS: TROPONIN I < 0.012 ng/mL
[2018-02-01] MEDS: CYCLOBENZAPRINE HCL 10 MG TABLET PO PRN ×2 (08:29→17:08)
[2018-02-01] MEDS: INSULIN LISPRO 100 UNIT/ML 3 ML VIAL SUBCUT PRN ×4 (08:29→22:28)
[2018-02-01] MEDS: FLUOXETINE HCL 20 MG CAPSULE PO SCH ×2 (09:14→17:10)
[2018-02-01] MEDS: LISINOPRIL 10 MG TABLET PO SCH ×2 (09:14→21:22)
[2018-02-01] MEDS: FAMOTIDINE 20 MG TABLET PO SCH ×2 (09:15→21:23)
[2018-02-01] MEDS: POLYETHYLENE GLYCOL 3350 POWDER 17 GM/1 PACKET PO SCH (09:15)
[2018-02-01] MEDS: PHENYTOIN SODIUM EXTENDED 100 MG CAPSULE PO SCH (09:15)
[2018-02-01] MEDS: METFORMIN HCL 500 MG TABLET PO SCH (09:15)
[2018-02-01] MEDS: METOPROLOL SUCCINATE 25 MG TAB.SR.24H PO SCH (09:15)
[2018-02-01] MEDS: ASPIRIN 81 MG TABLET, ENT COATED PO SCH (09:16)
[2018-02-01] MEDS: OXYCODONE HCL IR 5 MG TABLET PO PRN ×2 (12:15→21:22)
--- NOTE | 2018-02-01 14:07 | PDOC PROGRESS REPORT ---
Subjective Progress Note for:: 02/01/18 Subjective:: No new complaints or any significant event overnight. Patient has been waiting for placement to a rehab center. Reason For Visit: RIGHT INTERTROCHANTERIC HIP FRACTURE,DM2,SEIZURE Physical Exam Vital Signs: Temp Pulse Resp BP Pulse Ox 99.6 F 97 18 110/43 L 97 02/01/18 12:48 02/01/18 12:48 02/01/18 12:48 02/01/18 12:48 02/01/18 12:48 Intake & Output 01/31/18 02/01/18 02/02/18 06:59 06:59 06:59 Intake Total 1115 1497 Output Total 2800 500 Balance -1685 997 Weight 74.2 kg 75.1 kg General appearance: PRESENT: no acute distress, well-developed, well-nourished Head exam: PRESENT: atraumatic, normocephalic Eye exam: PRESENT: conjunctiva pink, EOMI, PERRLA. ABSENT: scleral icterus Ear exam: PRESENT: normal external ear exam Mouth exam: PRESENT: moist, tongue midline Neck exam: ABSENT: carotid bruit, JVD, lymphadenopathy, thyromegaly Respiratory exam: PRESENT: clear to auscultation genaro. ABSENT: rales, rhonchi, wheezes Cardiovascular exam: PRESENT: RRR. ABSENT: diastolic murmur, rubs, systolic murmur Pulses: PRESENT: normal dorsalis pedis pul Vascular exam: PRESENT: normal capillary refill GI/Abdominal exam: PRESENT: normal bowel sounds, soft. ABSENT: distended, guarding, mass, organolmegaly, rebound, tenderness Rectal exam: PRESENT: deferred Extremities exam: PRESENT: full ROM. ABSENT: calf tenderness, clubbing, pedal edema Neurological exam: PRESENT: alert, awake, oriented to person, oriented to place , oriented to time, oriented to situation, CN II-XII grossly intact. ABSENT: motor sensory deficit Psychiatric exam: PRESENT: appropriate affect, normal mood. ABSENT: homicidal ideation, suicidal ideation Skin exam: PRESENT: dry, intact, warm. ABSENT: cyanosis, rash Results Laboratory Results: 01/30/18 04:42 01/31/18 05:26 01/31/18 01/31/18 01/31/18 05:26 05:26 08:49 Creatine Kinase 212 H 202 H CK-MB (CK-2) 1.08 Troponin I < 0.012 01/31/18 01/31/18 01/31/18 08:49 13:52 13:52 Creatine Kinase 218 H CK-MB (CK-2) 1.10 1.37 Troponin I 0.013 < 0.012 01/31/18 01/31/18 19:50 19:50 Creatine Kinase 188 H CK-MB (CK-2) 1.56 Troponin I < 0.012 Impressions: Hip/Pelvis X-Ray 01/28/18 00:00 IMPRESSION: INTERTROCHANTERIC FRACTURE OF THE RIGHT HIP. Knee X-Ray 01/28/18 00:00 IMPRESSION: NEGATIVE STUDY OF THE RIGHT KNEE. NO RADIOGRAPHIC EVIDENCE OF ACUTE INJURY. Chest X-Ray 01/28/18 15:33 IMPRESSION: NO ACUTE RADIOGRAPHIC FINDING IN THE CHEST. Fluoroscopy 01/29/18 00:00 IMPRESSION: ORIF right hip fracture. Refer to operative note for further information. Hip X-Ray 01/29/18 00:00 IMPRESSION: ORIF right hip fracture. Refer to operative note for further information. Assessment & Plan - Diagnosis (1) Intertrochanteric fracture of right hip Qualifiers: Encounter type: initial encounter Fracture type: closed Fracture alignment: displaced Qualified Code(s): S72.141A - Displaced intertrochanteric fracture of right femur, initial encounter for closed fracture Is this a current diagnosis for this admission?: Yes Plan: Postop #1. Status post ORIF. Patient may need short-term acute rehab placement. (2) DM2 (diabetes mellitus, type 2) Qualifiers: Diabetes mellitus nursing home insulin use: without nursing home use Diabetes mellitus complication status: without complication Qualified Code(s): E11.9 - Type 2 diabetes mellitus without complications Is this a current diagnosis for this admission?: Yes Plan: Continue current regimen. 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 (7) Seizure disorder Is this a current diagnosis for this admission?: Yes Plan: In remission (8) Depression Qualifiers: Depression Type: unspecified Qualified Code(s): F32.9 - Major depressive disorder, single episode, unspecified Is this a current diagnosis for this admission?: Yes Plan: Continue home medication.
[2018-02-02] MEDS: CYCLOBENZAPRINE HCL 10 MG TABLET PO PRN ×2 (01:22→22:26)
--- NOTE | 2018-02-02 06:14 | PDOC PROGRESS REPORT ---
Subjective Progress Note for:: 02/02/18 Reason For Visit: RIGHT INTERTROCHANTERIC HIP FRACTURE,DM2,SEIZURE 57-year-old white female status post open reduction internal fixation of a right intratrochanteric femur fracture. Patient complaining of muscle spasms in the right thigh overnight. Physical Exam Vital Signs: Temp Pulse Resp BP Pulse Ox 36.8 C 95 16 129/53 H 95 02/02/18 03:34 02/02/18 03:34 02/02/18 03:34 02/02/18 03:34 02/02/18 03:34 Intake & Output 01/31/18 02/01/18 02/02/18 06:59 06:59 06:59 Intake Total 1115 1497 1035 Output Total 2800 500 1075 Balance -1685 997 -40 Weight 74.2 kg 75.1 kg 77.3 kg General appearance: PRESENT: mild distress, well-nourished Head exam: PRESENT: normocephalic Respiratory exam: PRESENT: unlabored Cardiovascular exam: PRESENT: RRR Pulses: PRESENT: +1 pedal pulses bilateral Vascular exam: PRESENT: normal capillary refill GI/Abdominal exam: PRESENT: soft Rectal exam: PRESENT: deferred Extremities exam: PRESENT: other - Right lower extremity dressings intact. There is increased soft tissue fullness in the right thigh consistent with presumed resolving hematoma. Neurological exam: PRESENT: alert, awake, oriented to person, oriented to place , oriented to time, oriented to situation. ABSENT: motor sensory deficit Psychiatric exam: PRESENT: appropriate affect, normal mood. ABSENT: homicidal ideation, suicidal ideation Skin exam: PRESENT: dry, intact, warm. ABSENT: cyanosis, rash Results Laboratory Results: 01/30/18 04:42 01/31/18 05:26 01/31/18 01/31/18 01/31/18 05:26 05:26 08:49 Creatine Kinase 212 H 202 H CK-MB (CK-2) 1.08 Troponin I < 0.012 01/31/18 01/31/18 01/31/18 08:49 13:52 13:52 Creatine Kinase 218 H CK-MB (CK-2) 1.10 1.37 Troponin I 0.013 < 0.012 01/31/18 01/31/18 19:50 19:50 Creatine Kinase 188 H CK-MB (CK-2) 1.56 Troponin I < 0.012 Impressions: Hip/Pelvis X-Ray 01/28/18 00:00 IMPRESSION: INTERTROCHANTERIC FRACTURE OF THE RIGHT HIP. Knee X-Ray 01/28/18 00:00 IMPRESSION: NEGATIVE STUDY OF THE RIGHT KNEE. NO RADIOGRAPHIC EVIDENCE OF ACUTE INJURY. Chest X-Ray 01/28/18 15:33 IMPRESSION: NO ACUTE RADIOGRAPHIC FINDING IN THE CHEST. Fluoroscopy 01/29/18 00:00 IMPRESSION: ORIF right hip fracture. Refer to operative note for further information. Hip X-Ray 01/29/18 00:00 IMPRESSION: ORIF right hip fracture. Refer to operative note for further information. Status: Imported from [facility] Assessment & Plan - Diagnosis (1) Intertrochanteric fracture of right hip Qualifiers: Encounter type: initial encounter Fracture type: closed Fracture alignment: displaced Qualified Code(s): S72.141A - Displaced intertrochanteric fracture of right femur, initial encounter for closed fracture Is this a current diagnosis for this admission?: Yes Plan: Patient making minor progress with physical therapy. Anticipate transfer to a [facility] facility when bed available.
[2018-02-02] MEDS: LISINOPRIL 10 MG TABLET PO SCH ×2 (09:12→22:25)
[2018-02-02] MEDS: METFORMIN HCL 500 MG TABLET PO SCH (09:12)
[2018-02-02] MEDS: ASPIRIN 81 MG TABLET, ENT COATED PO SCH (09:12)
[2018-02-02] MEDS: FAMOTIDINE 20 MG TABLET PO SCH ×2 (09:13→22:26)
[2018-02-02] MEDS: PHENYTOIN SODIUM EXTENDED 100 MG CAPSULE PO SCH (09:13)
[2018-02-02] MEDS: METOPROLOL SUCCINATE 25 MG TAB.SR.24H PO SCH (09:13)
[2018-02-02] MEDS: FLUOXETINE HCL 20 MG CAPSULE PO SCH ×2 (09:14→16:59)
[2018-02-02] MEDS: OXYCODONE HCL IR 5 MG TABLET PO PRN ×3 (09:17→22:27)
[2018-02-02] MEDS: POLYETHYLENE GLYCOL 3350 POWDER 17 GM/1 PACKET PO SCH (10:14)
[2018-02-02] MEDS: INSULIN LISPRO 100 UNIT/ML 3 ML VIAL SUBCUT PRN ×3 (12:56→22:43)
--- NOTE | 2018-02-02 13:49 | PDOC PROGRESS REPORT ---
Subjective Progress Note for:: 02/02/18 Subjective:: No significant event overnight. Reason For Visit: RIGHT INTERTROCHANTERIC HIP FRACTURE,DM2,SEIZURE Physical Exam Vital Signs: Temp Pulse Resp BP Pulse Ox 98.3 F 100 16 129/53 H 95 02/02/18 03:34 02/02/18 07:00 02/02/18 03:34 02/02/18 03:34 02/02/18 03:34 Intake & Output 02/01/18 02/02/18 02/03/18 06:59 06:59 06:59 Intake Total 1497 1035 Output Total 500 1075 Balance 997 -40 Weight 75.1 kg 77.3 kg General appearance: PRESENT: no acute distress, well-developed, well-nourished Head exam: PRESENT: atraumatic, normocephalic Eye exam: PRESENT: conjunctiva pink, EOMI, PERRLA. ABSENT: scleral icterus Ear exam: PRESENT: normal external ear exam Mouth exam: PRESENT: moist, tongue midline Neck exam: ABSENT: carotid bruit, JVD, lymphadenopathy, thyromegaly Respiratory exam: PRESENT: clear to auscultation genaro. ABSENT: rales, rhonchi, wheezes Cardiovascular exam: PRESENT: RRR. ABSENT: diastolic murmur, rubs, systolic murmur Pulses: PRESENT: normal dorsalis pedis pul Vascular exam: PRESENT: normal capillary refill GI/Abdominal exam: PRESENT: normal bowel sounds, soft. ABSENT: distended, guarding, mass, organolmegaly, rebound, tenderness Rectal exam: PRESENT: deferred Extremities exam: PRESENT: full ROM. ABSENT: calf tenderness, clubbing, pedal edema Neurological exam: PRESENT: alert, awake, oriented to person, oriented to place , oriented to time, oriented to situation, CN II-XII grossly intact. ABSENT: motor sensory deficit Psychiatric exam: PRESENT: appropriate affect, normal mood. ABSENT: homicidal ideation, suicidal ideation Skin exam: PRESENT: dry, intact, warm. ABSENT: cyanosis, rash Results Laboratory Results: 01/30/18 04:42 01/31/18 05:26 01/31/18 01/31/18 01/31/18 05:26 05:26 08:49 Creatine Kinase 212 H 202 H CK-MB (CK-2) 1.08 Troponin I < 0.012 01/31/18 01/31/18 01/31/18 08:49 13:52 13:52 Creatine Kinase 218 H CK-MB (CK-2) 1.10 1.37 Troponin I 0.013 < 0.012 01/31/18 01/31/18 19:50 19:50 Creatine Kinase 188 H CK-MB (CK-2) 1.56 Troponin I < 0.012 Impressions: Hip/Pelvis X-Ray 01/28/18 00:00 IMPRESSION: INTERTROCHANTERIC FRACTURE OF THE RIGHT HIP. Knee X-Ray 01/28/18 00:00 IMPRESSION: NEGATIVE STUDY OF THE RIGHT KNEE. NO RADIOGRAPHIC EVIDENCE OF ACUTE INJURY. Chest X-Ray 01/28/18 15:33 IMPRESSION: NO ACUTE RADIOGRAPHIC FINDING IN THE CHEST. Fluoroscopy 01/29/18 00:00 IMPRESSION: ORIF right hip fracture. Refer to operative note for further information. Hip X-Ray 01/29/18 00:00 IMPRESSION: ORIF right hip fracture. Refer to operative note for further information. Assessment & Plan - Diagnosis (1) Intertrochanteric fracture of right hip Qualifiers: Encounter type: initial encounter Fracture type: closed Fracture alignment: displaced Qualified Code(s): S72.141A - Displaced intertrochanteric fracture of right femur, initial encounter for closed fracture Is this a current diagnosis for this admission?: Yes Plan: Postop #1. Status post ORIF. Patient may need short-term acute rehab placement. (2) DM2 (diabetes mellitus, type 2) Qualifiers: Diabetes mellitus ferry terminal agent insulin use: without halfway use Diabetes mellitus complication status: without complication Qualified Code(s): E11.9 - Type 2 diabetes mellitus without complications Is this a current diagnosis for this admission?: Yes Plan: Continue current regimen. 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 (7) Seizure disorder Is this a current diagnosis for this admission?: Yes Plan: In remission (8) Depression Qualifiers: Depression Type: unspecified Qualified Code(s): F32.9 - Major depressive disorder, single episode, unspecified Is this a current diagnosis for this admission?: Yes Plan: Continue home medication.
[2018-02-03] MEDS: INSULIN LISPRO 100 UNIT/ML 3 ML VIAL SUBCUT PRN ×2 (07:47→12:14)
[2018-02-03] MEDS: POLYETHYLENE GLYCOL 3350 POWDER 17 GM/1 PACKET PO SCH (09:13)
[2018-02-03] MEDS: METFORMIN HCL 500 MG TABLET PO SCH (09:20)
[2018-02-03] MEDS: FLUOXETINE HCL 20 MG CAPSULE PO SCH ×2 (09:20→17:05)
[2018-02-03] MEDS: PHENYTOIN SODIUM EXTENDED 100 MG CAPSULE PO SCH (09:20)
[2018-02-03] MEDS: METOPROLOL SUCCINATE 25 MG TAB.SR.24H PO SCH (09:20)
[2018-02-03] MEDS: OXYCODONE HCL IR 5 MG TABLET PO PRN ×3 (09:20→23:13)
[2018-02-03] MEDS: LISINOPRIL 10 MG TABLET PO SCH ×2 (09:20→21:36)
[2018-02-03] MEDS: FAMOTIDINE 20 MG TABLET PO SCH ×2 (09:20→21:37)
[2018-02-03] MEDS: ASPIRIN 81 MG TABLET, ENT COATED PO SCH (09:20)
--- NOTE | 2018-02-03 10:57 | PDOC PROGRESS REPORT ---
Subjective Subjective:: No new complaint. No significant event overnight. Reason For Visit: RIGHT INTERTROCHANTERIC HIP FRACTURE,DM2,SEIZURE Physical Exam Vital Signs: Temp Pulse Resp BP Pulse Ox 97.7 F 101 H 16 115/55 L 95 02/03/18 08:57 02/03/18 08:57 02/03/18 08:57 02/03/18 08:57 02/03/18 08:57 Intake & Output 02/02/18 02/03/18 02/04/18 06:59 06:59 06:59 Intake Total 1035 Output Total 1075 Balance -40 Weight 77.3 kg 71.4 kg General appearance: PRESENT: no acute distress, well-developed, well-nourished Head exam: PRESENT: atraumatic, normocephalic Eye exam: PRESENT: conjunctiva pink, EOMI, PERRLA. ABSENT: scleral icterus Ear exam: PRESENT: normal external ear exam Mouth exam: PRESENT: moist, tongue midline Neck exam: ABSENT: carotid bruit, JVD, lymphadenopathy, thyromegaly Respiratory exam: PRESENT: clear to auscultation genaro. ABSENT: rales, rhonchi, wheezes Cardiovascular exam: PRESENT: RRR. ABSENT: diastolic murmur, rubs, systolic murmur Pulses: PRESENT: normal dorsalis pedis pul Vascular exam: PRESENT: normal capillary refill GI/Abdominal exam: PRESENT: normal bowel sounds, soft. ABSENT: distended, guarding, mass, organolmegaly, rebound, tenderness Rectal exam: PRESENT: deferred Extremities exam: PRESENT: full ROM. ABSENT: calf tenderness, clubbing, pedal edema Neurological exam: PRESENT: alert, awake, oriented to person, oriented to place , oriented to time, oriented to situation, CN II-XII grossly intact. ABSENT: motor sensory deficit Psychiatric exam: PRESENT: appropriate affect, normal mood. ABSENT: homicidal ideation, suicidal ideation Skin exam: PRESENT: dry, intact, warm. ABSENT: cyanosis, rash Results Laboratory Results: 01/30/18 04:42 01/31/18 05:26 01/31/18 01/31/18 01/31/18 05:26 05:26 08:49 Creatine Kinase 212 H 202 H CK-MB (CK-2) 1.08 Troponin I < 0.012 01/31/18 01/31/18 01/31/18 08:49 13:52 13:52 Creatine Kinase 218 H CK-MB (CK-2) 1.10 1.37 Troponin I 0.013 < 0.012 01/31/18 01/31/18 19:50 19:50 Creatine Kinase 188 H CK-MB (CK-2) 1.56 Troponin I < 0.012 Impressions: Hip/Pelvis X-Ray 01/28/18 00:00 IMPRESSION: INTERTROCHANTERIC FRACTURE OF THE RIGHT HIP. Knee X-Ray 01/28/18 00:00 IMPRESSION: NEGATIVE STUDY OF THE RIGHT KNEE. NO RADIOGRAPHIC EVIDENCE OF ACUTE INJURY. Chest X-Ray 01/28/18 15:33 IMPRESSION: NO ACUTE RADIOGRAPHIC FINDING IN THE CHEST. Fluoroscopy 01/29/18 00:00 IMPRESSION: ORIF right hip fracture. Refer to operative note for further information. Hip X-Ray 01/29/18 00:00 IMPRESSION: ORIF right hip fracture. Refer to operative note for further information. Assessment & Plan - Diagnosis (1) Intertrochanteric fracture of right hip Qualifiers: Encounter type: initial encounter Fracture type: closed Fracture alignment: displaced Qualified Code(s): S72.141A - Displaced intertrochanteric fracture of right femur, initial encounter for closed fracture Is this a current diagnosis for this admission?: Yes Plan: Postop #1. Status post ORIF. Patient may need short-term acute rehab placement. (2) DM2 (diabetes mellitus, type 2) Qualifiers: Diabetes mellitus penitentiary insulin use: without penitentiary use Diabetes mellitus complication status: without complication Qualified Code(s): E11.9 - Type 2 diabetes mellitus without complications Is this a current diagnosis for this admission?: Yes Plan: Continue current regimen. 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 (7) Seizure disorder Is this a current diagnosis for this admission?: Yes Plan: In remission (8) Depression Qualifiers: Depression Type: unspecified Qualified Code(s): F32.9 - Major depressive disorder, single episode, unspecified Is this a current diagnosis for this admission?: Yes Plan: Continue home medication.
[2018-02-03] MEDS: CYCLOBENZAPRINE HCL 10 MG TABLET PO PRN (19:22)
--- NOTE | 2018-02-04 06:42 | PDOC PROGRESS REPORT ---
Subjective Progress Note for:: 02/04/18 Reason For Visit: RIGHT INTERTROCHANTERIC HIP FRACTURE,DM2,SEIZURE 57-year-old white female now postop day 6 ORIF right proximal femur fracture. patient with no new complaints this morning Physical Exam Vital Signs: Temp Pulse Resp BP Pulse Ox 36.6 C 86 17 121/49 L 92 02/04/18 03:53 02/04/18 03:53 02/04/18 03:53 02/04/18 03:53 02/04/18 03:53 Intake & Output 02/02/18 02/03/18 02/04/18 06:59 06:59 06:59 Intake Total 1035 1184 Output Total 1075 1300 Balance -40 -116 Weight 77.3 kg 71.4 kg 71.4 kg General appearance: PRESENT: no acute distress, mild distress Head exam: PRESENT: normocephalic Respiratory exam: PRESENT: unlabored Cardiovascular exam: PRESENT: RRR Pulses: PRESENT: +1 pedal pulses bilateral Vascular exam: PRESENT: normal capillary refill GI/Abdominal exam: PRESENT: soft Rectal exam: PRESENT: deferred Musculoskeletal exam: PRESENT: other - Right lower extremity dressings clean dry and intact. Continued increased soft tissue tension about the right thigh consistent with resolving trauma/hematoma. Leg lengths are equal. Distal neurovascular examination is intact. Results Laboratory Results: 01/30/18 04:42 01/31/18 05:26 01/31/18 01/31/18 01/31/18 05:26 05:26 08:49 Creatine Kinase 212 H 202 H CK-MB (CK-2) 1.08 Troponin I < 0.012 01/31/18 01/31/18 01/31/18 08:49 13:52 13:52 Creatine Kinase 218 H CK-MB (CK-2) 1.10 1.37 Troponin I 0.013 < 0.012 01/31/18 01/31/18 19:50 19:50 Creatine Kinase 188 H CK-MB (CK-2) 1.56 Troponin I < 0.012 Impressions: Hip/Pelvis X-Ray 01/28/18 00:00 IMPRESSION: INTERTROCHANTERIC FRACTURE OF THE RIGHT HIP. Knee X-Ray 01/28/18 00:00 IMPRESSION: NEGATIVE STUDY OF THE RIGHT KNEE. NO RADIOGRAPHIC EVIDENCE OF ACUTE INJURY. Chest X-Ray 01/28/18 15:33 IMPRESSION: NO ACUTE RADIOGRAPHIC FINDING IN THE CHEST. Fluoroscopy 01/29/18 00:00 IMPRESSION: ORIF right hip fracture. Refer to operative note for further information. Hip X-Ray 01/29/18 00:00 IMPRESSION: ORIF right hip fracture. Refer to operative note for further information. Status: Imported from [facility] Assessment & Plan - Diagnosis (1) Intertrochanteric fracture of right hip Qualifiers: Encounter type: initial encounter Fracture type: closed Fracture alignment: displaced Qualified Code(s): S72.141A - Displaced intertrochanteric fracture of right femur, initial encounter for closed fracture Is this a current diagnosis for this admission?: Yes Plan: Continue to mobilize with physical therapy and weightbearing as tolerated basis
[2018-02-04] MEDS: OXYCODONE HCL IR 5 MG TABLET PO PRN ×3 (07:43→17:41)
[2018-02-04] MEDS: CYCLOBENZAPRINE HCL 10 MG TABLET PO PRN ×2 (07:43→22:02)
--- NOTE | 2018-02-04 11:00 | PDOC PROGRESS REPORT ---
Subjective Progress Note for:: 02/04/18 Subjective:: Patient seen resting in bed comfortably. She does not have any new complaints. Reason For Visit: RIGHT INTERTROCHANTERIC HIP FRACTURE,DM2,SEIZURE Physical Exam Vital Signs: Temp Pulse Resp BP Pulse Ox 98.1 F 87 14 147/52 H 99 02/04/18 07:45 02/04/18 07:45 02/04/18 07:45 02/04/18 07:45 02/04/18 07:45 Intake & Output 02/03/18 02/04/18 02/05/18 06:59 06:59 06:59 Intake Total 1184 Output Total 1300 Balance -116 Weight 71.4 kg 71.4 kg General appearance: PRESENT: no acute distress, well-developed, well-nourished Head exam: PRESENT: atraumatic, normocephalic Eye exam: PRESENT: conjunctiva pink, EOMI, PERRLA. ABSENT: scleral icterus Ear exam: PRESENT: normal external ear exam Mouth exam: PRESENT: moist, tongue midline Neck exam: ABSENT: carotid bruit, JVD, lymphadenopathy, thyromegaly Respiratory exam: PRESENT: clear to auscultation genaro. ABSENT: rales, rhonchi, wheezes Cardiovascular exam: PRESENT: RRR. ABSENT: diastolic murmur, rubs, systolic murmur Pulses: PRESENT: normal dorsalis pedis pul Vascular exam: PRESENT: normal capillary refill GI/Abdominal exam: PRESENT: normal bowel sounds, soft. ABSENT: distended, guarding, mass, organolmegaly, rebound, tenderness Rectal exam: PRESENT: deferred Extremities exam: PRESENT: full ROM. ABSENT: calf tenderness, clubbing, pedal edema Neurological exam: PRESENT: alert, awake, oriented to person, oriented to place , oriented to time, oriented to situation, CN II-XII grossly intact. ABSENT: motor sensory deficit Psychiatric exam: PRESENT: appropriate affect, normal mood. ABSENT: homicidal ideation, suicidal ideation Skin exam: PRESENT: dry, intact, warm. ABSENT: cyanosis, rash Results Laboratory Results: 01/30/18 04:42 01/31/18 05:26 01/31/18 01/31/18 01/31/18 05:26 05:26 08:49 Creatine Kinase 212 H 202 H CK-MB (CK-2) 1.08 Troponin I < 0.012 01/31/18 01/31/18 01/31/18 08:49 13:52 13:52 Creatine Kinase 218 H CK-MB (CK-2) 1.10 1.37 Troponin I 0.013 < 0.012 01/31/18 01/31/18 19:50 19:50 Creatine Kinase 188 H CK-MB (CK-2) 1.56 Troponin I < 0.012 Impressions: Hip/Pelvis X-Ray 01/28/18 00:00 IMPRESSION: INTERTROCHANTERIC FRACTURE OF THE RIGHT HIP. Knee X-Ray 01/28/18 00:00 IMPRESSION: NEGATIVE STUDY OF THE RIGHT KNEE. NO RADIOGRAPHIC EVIDENCE OF ACUTE INJURY. Chest X-Ray 01/28/18 15:33 IMPRESSION: NO ACUTE RADIOGRAPHIC FINDING IN THE CHEST. Fluoroscopy 01/29/18 00:00 IMPRESSION: ORIF right hip fracture. Refer to operative note for further information. Hip X-Ray 01/29/18 00:00 IMPRESSION: ORIF right hip fracture. Refer to operative note for further information. Assessment & Plan - Diagnosis (1) Intertrochanteric fracture of right hip Qualifiers: Encounter type: initial encounter Fracture type: closed Fracture alignment: displaced Qualified Code(s): S72.141A - Displaced intertrochanteric fracture of right femur, initial encounter for closed fracture Is this a current diagnosis for this admission?: Yes Plan: Postop #1. Status post ORIF. Patient may need short-term acute rehab placement. (2) DM2 (diabetes mellitus, type 2) Qualifiers: Diabetes mellitus alf insulin use: without alf use Diabetes mellitus complication status: without complication Qualified Code(s): E11.9 - Type 2 diabetes mellitus without complications Is this a current diagnosis for this admission?: Yes Plan: Continue current regimen. 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 (7) Seizure disorder Is this a current diagnosis for this admission?: Yes Plan: In remission (8) Depression Qualifiers: Depression Type: unspecified Qualified Code(s): F32.9 - Major depressive disorder, single episode, unspecified Is this a current diagnosis for this admission?: Yes Plan: Continue home medication.
[2018-02-04] MEDS: LISINOPRIL 10 MG TABLET PO SCH ×2 (11:30→23:42)
[2018-02-04] MEDS: METFORMIN HCL 500 MG TABLET PO SCH (11:30)
[2018-02-04] MEDS: ASPIRIN 81 MG TABLET, ENT COATED PO SCH (11:31)
[2018-02-04] MEDS: FAMOTIDINE 20 MG TABLET PO SCH ×2 (11:32→21:52)
[2018-02-04] MEDS: POLYETHYLENE GLYCOL 3350 POWDER 17 GM/1 PACKET PO SCH (11:32)
[2018-02-04] MEDS: METOPROLOL SUCCINATE 25 MG TAB.SR.24H PO SCH (11:33)
[2018-02-04] MEDS: FLUOXETINE HCL 20 MG CAPSULE PO SCH ×2 (11:33→17:41)
[2018-02-04] MEDS: PHENYTOIN SODIUM EXTENDED 100 MG CAPSULE PO SCH (12:22)
[2018-02-04] MEDS: INSULIN LISPRO 100 UNIT/ML 3 ML VIAL SUBCUT PRN ×2 (12:26→21:52)
[2018-02-04] MEDS: ACETAMINOPHEN 325 MG TABLET PO PRN (13:52)
[2018-02-05] MEDS: PHENYTOIN SODIUM EXTENDED 100 MG CAPSULE PO SCH (09:26)
[2018-02-05] MEDS: FLUOXETINE HCL 20 MG CAPSULE PO SCH (09:27)
[2018-02-05] MEDS: ACETAMINOPHEN 325 MG TABLET PO PRN (09:27)
[2018-02-05] MEDS: OXYCODONE HCL IR 5 MG TABLET PO PRN ×3 (09:27→15:27)
[2018-02-05] MEDS: FAMOTIDINE 20 MG TABLET PO SCH (09:28)
[2018-02-05] MEDS: METOPROLOL SUCCINATE 25 MG TAB.SR.24H PO SCH (09:28)
[2018-02-05] MEDS: POLYETHYLENE GLYCOL 3350 POWDER 17 GM/1 PACKET PO SCH (09:28)
[2018-02-05] MEDS: METFORMIN HCL 500 MG TABLET PO SCH (09:28)
[2018-02-05] MEDS: ASPIRIN 81 MG TABLET, ENT COATED PO SCH (09:28)
[2018-02-05] MEDS: LISINOPRIL 10 MG TABLET PO SCH (09:29)
[2018-02-05] MEDS ORDERED: BUTRANS TD SCH (10:00)
--- NOTE | 2018-02-05 12:25 | PDOC TRANSFER SUMMARY ---
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 Is this a current diagnosis for this admission?: Yes (6) Chronic pain disorder Is this a current diagnosis for this admission?: Yes (7) Seizure disorder Is this a current diagnosis for this admission?: Yes (8) Depression Is this a current diagnosis for this admission?: Yes - Additional Information Resuscitation Status: Full Code Prescriptions: Buprenorphine [Butrans] 10 mcg TD MO@1800 7 Days #7 patch.tdwk Home Medications: Aspirin [Aspirin 325 mg Tablet] 325 mg PO DAILY 01/29/18 Bisacodyl [Dulcolax 5 mg Tablet] 5 mg PO DAILYP PRN 01/29/18 Cyclobenzaprine HCl [Flexeril 10 mg Tablet] 10 mg PO TIDP PRN 01/29/18 Fluoxetine HCl [Prozac] 40 mg PO DAILY 01/29/18 Ibuprofen [Motrin 800 mg Tablet] 800 mg PO TIDP PRN 01/29/18 Lisinopril [Prinivil 40 mg Tablet] 40 mg PO DAILY 01/29/18 Metformin HCl [Metformin HCl ER] 500 mg PO DAILY 01/29/18 Metoprolol Succinate [Toprol Xl 25 mg Tab.sr] 25 mg PO DAILY 01/29/18 Multivit/Folic Acid/Vit K1 [One-A-Day Women's 50 Plus Tab] 1 each PO DAILY 01/29 Oxycodone HCl/Acetaminophen [Percocet 5-325 mg Tablet] 1 tab PO Q6HP PRN Phenytoin Sodium Extended [Dilantin 100 mg Capsule.er] 400 mg PO DAILY 01/29/18 Buprenorphine [Butrans] 10 mcg TD MO@1800 7 Days #7 patch.tdwk 02/05/18 History of Present Illness Admission Date/PCP: 01/28/18 16:52 History of Present Illness: WANDA BYERS is a 57 year old female who was stepping out of the shower this morning. She went to put on her pants and lost her balance. As soon as she hit the floor she felt the sharp pain in the right hip. She must of fallen specifically to the right as there was some abrasion on her right elbow. She asked her to get her off the floor and I believe he put her in bed. He then called EMS. She is still in significant pain and apprehensive with regard to the upcoming surgery. Hospital Course Hospital Course: his is 57 years old female patient who involved in mechanical fall and sustained right intertrochanteric hip fracture. Patient is status post ORIF and she has smooth postoperative course. Patient has been participating with physical and Occupational Therapy. [facility]. This morning seen patient resting in bed comfortably she is not in pain or any form of distress. She is awake alert and oriented. Her vital signs and blood works are within normal limits and patient stable enough to be discharged. I will continue all her home medications. Physical Exam Vital Signs: Temp Pulse Resp BP Pulse Ox 98.1 F 92 19 103/87 H 96 02/05/18 08:03 02/05/18 08:03 02/05/18 08:03 02/05/18 08:03 02/05/18 08:03 Intake & Output 02/04/18 02/05/18 02/06/18 06:59 06:59 06:59 Intake Total 1184 1807 Output Total 1300 Balance -116 1807 Weight 71.4 kg 75.6 kg General appearance: PRESENT: no acute distress, well-developed, well-nourished Head exam: PRESENT: atraumatic, normocephalic Eye exam: PRESENT: conjunctiva pink, EOMI, PERRLA. ABSENT: scleral icterus Ear exam: PRESENT: normal external ear exam Mouth exam: PRESENT: moist, tongue midline Neck exam: ABSENT: carotid bruit, JVD, lymphadenopathy, thyromegaly Respiratory exam: PRESENT: clear to auscultation genaro. ABSENT: rales, rhonchi, wheezes Cardiovascular exam: PRESENT: RRR. ABSENT: diastolic murmur, rubs, systolic murmur Pulses: PRESENT: normal dorsalis pedis pul Vascular exam: PRESENT: normal capillary refill GI/Abdominal exam: PRESENT: normal bowel sounds, soft. ABSENT: distended, guarding, mass, organolmegaly, rebound, tenderness Rectal exam: PRESENT: deferred Extremities exam: PRESENT: full ROM. ABSENT: calf tenderness, clubbing, pedal edema Neurological exam: PRESENT: alert, awake, oriented to person, oriented to place , oriented to time, oriented to situation, CN II-XII grossly intact. ABSENT: motor sensory deficit Psychiatric exam: PRESENT: appropriate affect, normal mood. ABSENT: homicidal ideation, suicidal ideation Skin exam: PRESENT: dry, intact, warm. ABSENT: cyanosis, rash Results Laboratory Results: 01/30/18 04:42 01/31/18 05:26 01/31/18 01/31/18 01/31/18 05:26 05:26 08:49 Creatine Kinase 212 H 202 H CK-MB (CK-2) 1.08 Troponin I < 0.012 01/31/18 01/31/18 01/31/18 08:49 13:52 13:52 Creatine Kinase 218 H CK-MB (CK-2) 1.10 1.37 Troponin I 0.013 < 0.012 01/31/18 01/31/18 19:50 19:50 Creatine Kinase 188 H CK-MB (CK-2) 1.56 Troponin I < 0.012 Impressions: Hip/Pelvis X-Ray 01/28/18 00:00 IMPRESSION: INTERTROCHANTERIC FRACTURE OF THE RIGHT HIP. Knee X-Ray 01/28/18 00:00 IMPRESSION: NEGATIVE STUDY OF THE RIGHT KNEE. NO RADIOGRAPHIC EVIDENCE OF ACUTE INJURY. Chest X-Ray 01/28/18 15:33 IMPRESSION: NO ACUTE RADIOGRAPHIC FINDING IN THE CHEST. Fluoroscopy 01/29/18 00:00 IMPRESSION: ORIF right hip fracture. Refer to operative note for further information. Hip X-Ray 01/29/18 00:00 IMPRESSION: ORIF right hip fracture. Refer to operative note for further information. Qualifiers - * PATIENT BEING DISCHARGED WITH ANY OF THE FOLLOWING DIAGNOSIS: No
[2018-02-05 12:42] VITALS: BP 100/50
[2018-02-05] MEDS: CYCLOBENZAPRINE HCL 10 MG TABLET PO PRN (12:57)
== END 2018-02-05 15:45 | DRG 481 ==
LOC: ER 14:17 → EH 16:52 → 4N 18:10
PROVIDERS: ADMIT Hospitalist; ATTEND Hospitalist
PROC: 0QS Lower Bones, Reposition (ICD-10-PCS; principal; 2018-01-29 13:45)
DX: S72.141A Displaced intertrochanteric fracture of right femur, initial encounter for closed fracture (principal); I42.9 Cardiomyopathy, unspecified; D62 Acute posthemorrhagic anemia; W01.0XXA Fall on same level from slipping, tripping and stumbling without subsequent striking against object, initial encounter; E87.5 Hyperkalemia; E83.42 Hypomagnesemia; G89.29 Other chronic pain; G40.909 Epilepsy, unspecified, not intractable, without status epilepticus; F32.9 Major depressive disorder, single episode, unspecified; I10 Essential (primary) hypertension; M50.30 Other cervical disc degeneration, unspecified cervical region; M54.9 Dorsalgia, unspecified; E11.65 Type 2 diabetes mellitus with hyperglycemia; Y92.012 Bathroom of single-family (private) house as the place of occurrence of the external cause; E66.9 Obesity, unspecified; I44.7 Left bundle-branch block, unspecified; Z79.899 Other long term (current) drug therapy; Z90.49 Acquired absence of other specified parts of digestive tract; Z87.891 Personal history of nicotine dependence; Z91.041 Radiographic dye allergy status; Z83.3 Family history of diabetes mellitus; Z80.9 Family history of malignant neoplasm, unspecified; Z82.49 Family history of ischemic heart disease and other diseases of the circulatory system
CPT/HCPCS: 01230; 36415; 71045; 80048; 80053; 81001; 82550; 82553; 82962; 83036; 83735; 84484; 85025; 85027; 85610; 85730; 93005; 93010; 93306; 96374; 96375; 99285; C1713; C1769; G8978-GP; G8979-GP; J0131; J0330; J0690; J1100; J1170; J1644; J1815; J2250; J2270; J2405; J2704; J3010; J3360; J3475; J3490; J7030; J7120